=== PATIENT | female | born 1985 | race African-American/Black ===

== ENCOUNTER 2020-09-10 03:58 | Emergency (ER) | payer OTHER ==
[~2020-09-10] VITALS: Ht 165.1 cm; Wt 86.6 kg
[~2020-09-10 03:58] MED LIST: AMOXIL 875 MG875 M1 PO; CLARITIN5 MG/5 ML PO; FLONASE 0.05%50 MCG NS; IBUPROFEN 800800 MG PO; NAPROSYN500 MG PO; NOHOMEMEDICATIONS; NORFLEX100 MG PO; PRENATAL PO; ULTRAM 50MG TAB50 MG PO; VENTOLIN HFA 1818 GM INH; ZOFRAN ODT4 MG PO; [UNRECOGNIZED DRUG - OTHER] OT
[2020-09-10 03:59] VITALS: BP 120/74
== END 2020-09-10 05:03 | disposition home or self-care (01) ==
LOC: ER 03:58
DX: J02.8 Acute pharyngitis due to other specified organisms (principal); J45.909 Unspecified asthma, uncomplicated; Z20.822 Contact with and (suspected) exposure to COVID-19; Z91.09 Other allergy status, other than to drugs and biological substances; Z79.51 Long term (current) use of inhaled steroids